=== PATIENT | female | born 1980 | race Caucasian/White ===

== ENCOUNTER → 2023-12-15 14:25 | Outpatient (REF) | payer OTHER, SELFPAY | LOC: HWWDC 14:25 | PROVIDERS: ATTENDING PHYSICIAN Specialist; FAMILY PHYSICIAN Family Medicine | DX: Z12.31 Encounter for screening mammogram for malignant neoplasm of breast (principal) | CPT/HCPCS: 77063; 77067 ==

== ENCOUNTER 2025-05-05 20:57 | Emergency (ER) | payer OTHER, SELFPAY ==
[2025-05-05 21:01] VITALS: BP 146/90
[2025-05-05 21:22] LABS: Hematocrit 41.2 % (37.0-47.0); Hemoglobin 13.3 g/dL (12.0-16.0); Mean Corp Hgb Conc. 32.3 g/dL (33.0-37.0); Mean Corpuscular Volume 90.7 fL (81.0-99.0); Nucleated Red Blood Cells % 0 %; Platelet Count 321 10^3/uL (130-400); Red Cell Dist. Width 12.6 % (11.5-14.5)
[2025-05-05 21:36] LABS: HCG, Serum Qualitative Screen Negative
[2025-05-05 21:37] VITALS: BP 127/81
[2025-05-05 21:47] LABS: ALT (SGPT) 15 U/L (0-35); AST (SGOT) 22 U/L (14-36); Albumin 4.6 g/dl (3.5-5.0); Alkaline Phosphatase 53 U/L (38-126); Blood Urea Nitrogen 11 mg/dl (7-17); Calcium 9.3 mg/dl (8.4-10.2); Carbon Dioxide 28 mmol/L (22-30); Chloride 103 mmol/L (98-107); Glucose 91 mg/dl (70-99); Potassium 4.0 mmol/L (3.5-5.1); Sodium 136 mmol/L (135-145); Total Protein 7.3 g/dl (6.3-8.2); Troponin I < 0.012 ng/ml; eGFR > 60.00
[2025-05-05 22:00] VITALS: BP 109/74
[2025-05-05 23:00] VITALS: BP 112/78
--- NOTE | 2025-05-05 23:23 | ED.GENMED ---
History of Present Illness
General
Chief Complaint: Cardiac Symptoms
Source: patient
Exam Limitations: none
Time Seen by Provider: 05/05/25 23:03
History of Present Illness
History of Present Illness:
See MDM
Past History
Past History
ED Past Medical History: None; Negative Asthma, HTN, Hypercholesterolemia or NIDDM
ED Past Surgical History:
Social History
Tobacco: Former smoker
Alcohol: Occasional
Personal: Single
Living: with family
Phy Exam
Physical Exam
Physical Exam:
See MDM
Course
Orders/Labs/Results
Orders:
Orders
05/05/25 21:00
Electrocardiogram (*1) Urgent
Reason for Study: Chest Pain
EKG- Treatment ONCE
Test Result ONCE
05/05/25 21:13
Complete Blood Count/With Diff Urgent
Comprehensive Metabolic Panel Urgent
HCG, Serum Qualitative Screen Urgent
Troponin I Urgent
05/05/25 22:23
Chest [CR Chest - 2 Views ] Urgent
Comment:
Reason For Exam: chest pain
Abnormal Lab Results
05/05/25
21:13
MCHC 32.3 L g/dL
(33.0-37.0)
05/05/25 21:13
05/05/25 21:13
Vital Signs
Initial and Last Documented VS:
Initial Vital Signs
Temp Pulse Resp BP Pulse Ox
97.7 F 91 16 146/90 98
05/05/25 21:01 05/05/25 21:01 05/05/25 21:01 05/05/25 21:01 05/05/25 21:01
Last Documented Vital Signs
Temp Pulse Resp BP Pulse Ox
97.7 F 63 17 109/74 98
05/05/25 21:01 05/05/25 22:30 05/05/25 22:30 05/05/25 22:00 05/05/25 22:30
MDM/Problems Addressed
Differential Diagnosis Includes:
Note:
CHIEF COMPLAINT(S)
Dull pain on the left side, associated with neck pain and chills.
HISTORY OF PRESENT ILLNESS
The patient is a 45-year-old female presenting with dull pain on the left side which began before 7 PM today. The pain is also associated with neck pain and sporadic chills. She describes an episode earlier today when she felt her body was swollen
and had trouble removing her rings, leading to panic. Despite feeling somewhat better, she continues to experience pressure but denies any significant leg pain or swelling. There is no reported history of heart-related issues, but her mother takes
medication for blood pressure. Shes currently not on any medications herself. The patients initial diagnostics including X-ray and ECG appeared normal, and she is waiting for troponin test results.
SOCIAL HISTORY
The patient reports experiencing significant body stress, though not feeling stressed at the moment of the consultation.
REVIEW OF SYSTEMS
- Cardiovascular: Dull pain on the left side and neck, described as pressure, and associated with sporadic chills.
- General: Reports feeling her body was swollen earlier today, had trouble removing rings.
PHYSICAL EXAM
General: Alert, no acute distress.
Skin: Warm, dry.
Head: Normocephalic, atraumatic
Neck: Appears supple, trachea midline.
Eyes, Ears, Nose, Mouth, and Throat: Moist mucous membranes
Cardiovascular: No signs of cyanosis. Regular rate and rhythm lungs clear
Respiratory: Respirations are non-labored.
Abdomen: Non-distended
Musculoskeletal: No deformities. No leg edema
Neurological: No focal neurological deficit observed.
Psychiatric: Cooperative, appropriate mood and affect.
PROBLEM LIST
- Acute: Dull pain on the left side, neck pain, associated with chills; possible stress-related symptoms.
PLAN
- Await and review troponin test results. Consider repeat testing for troponin if needed to rule out cardiac involvement.
- Discuss the low likelihood of a heart attack but acknowledge the need for caution given her symptoms.
- Observations in the clinical setting will continue, ensuring readiness to address unforeseen complications.
- Reassure the patient while affirming that the symptoms could relate to non-cardiac causes, potentially stress-related.
DIFFERENTIAL DIAGNOSIS
The Differential Diagnosis includes, in no particular order and is not limited to:
1. Myocardial infarction
2. Anxiety or stress-related disorder
3. Musculoskeletal strain
4. Gastroesophageal reflux disease (GERD)
5. Pericarditis
6. Costochondritis
7. Pneumonia or other respiratory infections
8. Pulmonary embolism
9. Esophageal spasm
10. Panic attack
EKG
My independent EKG interpretation is:
- Rhythm: Normal sinus rhythm
- Heart Rate: 88 beats per minute
- Nelson: Normal axis
- ST Segment: No ST elevation
SUMMARY OF ENCOUNTER
A 45-year-old female presented to the emergency department with central chest pain that appeared to be relieved after the administration of aspirin. Given the duration of symptoms coupled with a non-ischemic EKG, negative troponin, and normal chest
x-ray, acute coronary syndrome was considered less likely. Both the patient and provider engaged in shared decision-making regarding further testing. It was determined that a D-dimer was less warranted due to the patients normal heart rate, oxygen
saturation, absence of deep vein thrombosis signs, and lack of control usage. The potential for a second troponin test was discussed, emphasizing the limitations of a single negative troponin in ruling out acute coronary syndrome. The patient
ultimately chose to forgo further testing, as she felt symptomatically improved and comfortable.
PLAN
- Monitor the patients symptoms and provide return precautions with a recommendation for urgent care if symptoms worsen.
- Provide information on the limitations of current testing and importance of follow-ups, especially considering the discussion about a second troponin.
INDEPENDENT REVIEW OF LABS AND INTERPRETATION OF TESTS
My independent review of EKG is normal sinus rhythm with no ischemia.
My independent review of the chest x-ray indicates no abnormalities.
PATIENT EDUCATION AND COUNSELING
The patient was informed about the reduced likelihood of acute coronary syndrome given her current diagnostics but was also advised on the limitations of a single negative troponin test in ruling out coronary events completely. Return precautions
were discussed, and the patient was advised to seek immediate medical attention if symptoms returned or worsened.
MEDICAL DECISION MAKING
-Chronic conditions affecting care and DDx list: Myocardial infarction, Anxiety or stress-related disorder, Musculoskeletal strain, Gastroesophageal reflux disease (GERD), Pericarditis, Costochondritis, Pneumonia or other respiratory infections,
Pulmonary embolism, Esophageal spasm, Panic attack.
-Data:
Category 1
Non-emergency department records reviewed, if applicable.
Clinical information was obtained from the patients description of symptoms and previous history of taking medical advice from her mothers heart condition.
Category 2
My independent interpretation of EKG is normal sinus rhythm with no ischemia.
My independent interpretation of the chest x-ray indicates no abnormalities.
-Risk:
Consideration of Admission/Observation: Escalation of care including admission/observation was considered given the complexity and risk of the patients presenting complaint. However, ultimately I feel the patient is safe for outpatient management
with close follow-up. Reasoning: Work-up was reassuring and did not reveal any acute life/organ-threatening processes, patients symptoms were well controlled upon reevaluation, reexamination was reassuring, vital signs were stable, patient was
agreeable with discharge, and reliable for follow-up.
DIAGNOSIS
1. Chest pain, unspecified (R07.9)
2. Acute stress reaction, unspecified (F43.0)
*Pulse Oximetry
SaO2: 98
Oxygen Mode of Delivery: Room air
Patient hypoxic: no
*Critical Care Note
Total Time (30-74mins, 75-104mins- exclusive of procedures): Not Applicable
ED Attending Note
-
Portions of this chart may have been created with voice recognition software.� Occasional wrong word or��sound alike� substitutions may have occurred due to the inherent limitations of voice recognition software.
Discharge Plan
Departure
Patient Disposition: Home (Routine Discharge)
Date of Disposition: 05/05/25
Time of Disposition: 23:23
Patient with high blood pressure during this ER visit?: No
Discharge Problem:
Chest pain
Activity Restrictions/Additional Instructions:
Please return for any worsening symptoms.
You may return at any time if you have further concerns.
Please follow up with your doctor at the first available appointment, preferably this week.
Interventions
Interventions:
*Risk Screen - Suicide Last Done: 05/05/25 21:01
*General Assessment Last Done: 05/05/25 21:01
*Neglect/Abuse Screening Last Done: 05/05/25 21:01
*ED- Fall Risk Assessment Last Done: 05/05/25 22:49
*ED COVID-19 Vaccine History Last Done: 05/05/25 22:39
*ED Influenza Vaccine History Last Done: 05/05/25 22:39
ED- Pulmonary Assessment Last Done: 05/05/25 22:39
ED- Cardiac Assessment Last Done: 05/05/25 22:39
Discharge Date and Time
Print Language: [id number]
== END 2025-05-05 23:31 | disposition home or self-care (01) ==
LOC: EMR 20:57
PROVIDERS: Emergency Medicine; EMERGENCY PHYSICIAN Student in an Organized Health Care Education/Training Program; FAMILY PHYSICIAN Family Medicine
DX: R07.9 Chest pain, unspecified (principal); F43.0 Acute stress reaction; Z87.891 Personal history of nicotine dependence
CPT/HCPCS: 99285; 71046; 80053; 84484; 84703; 85025; 93005